=== PATIENT | male | born 1980 | race Caucasian/White ===

== ENCOUNTER 2023-07-18 14:11 | Emergency (ER) | payer OTHER, SELFPAY ==
[2023-07-18 14:22] VITALS: BP 131/79; PULSE 93; RESP 16; TEMP 36.5; O2SAT 97; BMI 24.1
--- NOTE | 2023-07-18 16:19 | ED_ITS ---
HPI - General Adult General Date Seen: 07/18/23 Chief complaint: Skin/Abscess/Foreign Body Stated complaint: L arm swelling Time Seen by Provider: 07/18/23 16:05 Source: patient Mode of arrival: ambulatory Limitations: no limitations History of Present Illness HPI narrative: Patient is brought in by his partner with concerns of warmth, redness, swelling of the left elbow. He was seen in urgent care a few days ago and started on Keflex for a presumed cellulitis. He does not recall being bitten or stung. There has been no fevers or chills. No purulent drainage. They did not find a bite or stinger. He has been on Keflex for three days and redness if anything has expanded just a bit. No previous reactions like this. No lip or tongue swelling. He does take Singulair for asthma. Related Data Home Medications Medication Instructions Recorded Confirmed levalbuterol tartrate 45 inhalation 07/16/23 07/16/23 mcg/actuation aerosol inhaler montelukast 10 mg tablet 10 mg PO QPM 07/16/23 07/16/23 Previous Rx's Medication Instructions Recorded cephalexin 500 mg capsule 500 mg PO TID 7 days #21 caps 07/16/23 cephalexin 250 mg/5 mL oral 500 mg (10 mL) PO TID 5 days #150 07/18/23 suspension mL prednisone 50 mg tablet 50 mg PO DAILY #5 tabs 07/18/23 Allergies Allergy/AdvReac Type Severity Reaction Status Date / Time A.R.M allergy AdvReac Mild Uncoded 07/16/23 10:16 Review of Systems 2 Narrative: Review of systems is outlined above otherwise noted to be negative. [facility] Medical History (Updated 07/18/23 @ 16:19 by Dar Boucher MD) Cellulitis of elbow ?L03.119 - Cellulitis of unspecified part of limb (ICD-10) Social History Smoking Status: Never smoker How often do you have a drink containing alcohol: never How often do you have six or more drinks on one occasion: Never AUDIT-C Alcohol total score: 0 Non-prescribed substance use: denies use Exam Narrative: Exam Narrative: Vitals noted. There is no lip or tongue swelling. Lungs are clear. Heart is regular rate rhythm without murmur. He has intense redness over the elbow. This is still within the pen line marked at urgent care. The tissue was not indurated but is warm and swollen. I believe I do see a small entry wound right over the olecranon. There is no regional adenopathy or lymphangitic streaking. No deep pain with range of motion. Const: Vital Signs, click to edit/add: Vital Signs - 24 hr 07/18/23 14:22 Temperature 97.7 F Pulse Rate [Right Pulse Oximeter] 93 Respiratory Rate 16 Blood Pressure [Ri ght Upper Arm] 131/79 Pulse Oximetry 97 Oxygen Delivery Me thod Room Air Course Course Hospital Course: Patient seen and examined. We discussed the difference between cellulitis and a local reaction to a sting. I suspect that this is a dramatic local reaction. We discussed that it is appropriate to finish a course of cephalexin to cover for infection. We also discussed the difference between this type of reaction and anaphylaxis. Will have him complete a course of cephalexin and start prednisone 50 mg daily for five days. He can also use an antihistamine. Vital Signs Vital signs: Initial Vital Signs Temperature 97.7 F 07/18/23 14:22 Temperature Source Temporal Artery Scan 07/18/23 14:22 Pulse Rate 93 07/18/23 14:22 Pulse Rhythm Regular 07/18/23 14:22 Respiratory Rate 16 07/18/23 14:22 Blood Pressure 131/79 07/18/23 14:22 Blood Pressure Mean 96 07/18/23 14:22 Blood Pressure Position Sitting 07/18/23 14:22 Pulse Oximetry 97 07/18/23 14:22 Oxygen Delivery Method Room Air 07/18/23 14:22 Vital Signs Temperature 97.7 F 07/18/23 14:22 Pulse Rate 93 07/18/23 14:22 Respiratory Rate 16 07/18/23 14:22 Blood Pressure 131/79 07/18/23 14:22 Pulse Oximetry 97 07/18/23 14:22 Oxygen Delivery Method Room Air 07/18/23 14:22 Temperature 97.7 F 07/18/23 14:22 Pulse Rate 93 07/18/23 14:22 Respiratory Rate 16 07/18/23 14:22 Blood Pressure 131/79 07/18/23 14:22 Pulse Oximetry 97 07/18/23 14:22 Oxygen Delivery Method Room Air 07/18/23 14:22 Discharge Plan Discharge Clinical Impression: Insect bite of elbow with local reaction, Cellulitis of elbow Patient Disposition: Home, Self-Care Condition: Stable Additional Instructions: Cephalexin 500 mg t.i.d. for a total of 12 days. Prednisone 50 mg daily for five days. Ice. Follow-up in the clinic if not significantly improved over the next 3-5 days. Prescriptions: New prednisone 50 mg tablet 50 mg PO DAILY Qty: 5 0RF cephalexin 250 mg/5 mL suspension for reconstitution 500 mg PO TID 5 Days Qty: 150 0RF No Action levalbuterol tartrate 45 mcg/actuation HFA aerosol inhaler inhalation montelukast 10 mg tablet 10 mg PO QPM cephalexin 500 mg capsule 500 mg PO TID 7 Days Qty: 21 0RF Follow Up/Referrals: Provider,Not a Local [Referring] - Stand Alone Forms: MyHealth Info Instructions
== END 2023-07-18 16:30 | disposition home or self-care (01) ==
PROVIDERS: Emergency Provider Family Medicine; PCP Family Medicine
DX: L03.114 Cellulitis of left upper limb (principal)
CPT/HCPCS: 99281; 99283